=== PATIENT | male | born 1990 | race Caucasian/White ===

== ENCOUNTER 2020-12-07 01:25 | Emergency (ER) | payer OTHER ==
[~2020-12-07] VITALS: Ht 177.8 cm; Wt 84.0 kg
[2020-12-07] MEDS ORDERED: OXYCODONE20 M1 PO (02:06)
[2020-12-07] MEDS ORDERED: BACTRIM DS1 TAB PO (02:09)
[2020-12-07] MEDS ORDERED: VISTARIL25 MG PO (02:12)
[2020-12-07] MEDS ORDERED: MEDDOSEPAK PO (02:12)
[2020-12-07 02:33] VITALS: BP 124/82
== END 2020-12-07 02:30 | disposition home or self-care (01) ==
LOC: ED 01:25
DX: S90.862A Insect bite (nonvenomous), left foot, initial encounter (principal); S90.861A Insect bite (nonvenomous), right foot, initial encounter; W57.XXXA Bitten or stung by nonvenomous insect and other nonvenomous arthropods, initial encounter